=== PATIENT | female | born 2000 | race Caucasian/White ===

== ENCOUNTER 2023-09-28 11:15 | Emergency (ER) | payer SELFPAY ==
[2023-09-28 11:27] VITALS: BP 116/69
--- NOTE | 2023-09-28 11:38 | ED.GENMED ---
History of Present Illness
General
Chief Complaint: Abdominal Symptoms
Source: patient
Time Seen by Provider: 09/28/23 11:36
Travel History
Have you had any contact with someone who has COVID-19?: No
Do you have any symptoms of coronavirus? Fever > 100 degrees, chills, cough, shortness of breath, sore throat, loss of taste or smell, muscle aches, or headache?: Yes
Symptoms:: nausea
History of Present Illness
History of Present Illness:
22-year-old female with past medical history of anxiety, depression, previous substance abuse presenting to the emergency department via EMS for evaluation after she has been experiencing nausea over the last 3 days, no other symptoms associated and
no vomiting. Patient was given a Zofran and route by EMS and upon arrival to the emergency department states that her symptoms are fully resolved and she wishes to be discharged home and does not wish to seek any further care. Patient is denying
any abdominal pain, urinary symptoms, back or flank pain. She states her last menstrual period was about 1 week ago. Notes that prior to this menstrual she had not had a regular menstrual for about 10 months which she is attributing to her
substance abuse. She states she does not believe she is .
Past History
Past History
ED Past Medical History: Psychiatric
ED Past Surgical History: None
Social History
Tobacco: Non-smoker
Alcohol: None
Drug: IVDA and Other (Smokes crack)
Personal: Single
Living: homeless
Review of Systems
Review of Systems
All Other Systems: ROS reviewed and negative except as documented in HPI and ROS
Phy Exam
Physical Exam
Physical Exam:
GENERAL: Alert , in no apparent distress
EYE: conjunctiva clear
Head: Normocephalic atraumatic
NECK: Supple,
ENT: mmm.
LUNGS: no acute respiratory distress
Abdomen: Soft, nontender, nondistended, very thin in appearance
NEUROLOGICAL: Alert and oriented
SKIN: Warm and dry, skin intact.
MUSCULOSKELETAL: well perfused.
PSYCH: Normal and appropriate interaction.
Scores
Heart Failure Risk
Heart Failure Risk Score: Not Applicable
Heart Score for Chest Pain Patients
STEMI patient?: Not applicable
Withdrawal Assessment of Alcohol
Withdrawal Assessment Completed?: Not applicable
Course
Vital Signs
Initial and Last Documented VS:
Initial Vital Signs
Temp Pulse Resp BP Pulse Ox
98.3 F 78 16 116/69 100
09/28/23 11:27 09/28/23 11:09/28/23 11:09/28/23 11:09/28/23 11:27
Last Documented Vital Signs
Temp Pulse Resp BP Pulse Ox
98.3 F 78 16 116/69 100
09/28/23 11:27 09/28/23 11:27 09/28/23 11:09/28/23 11:27 09/28/23 11:27
MDM/Problems Addressed
Differential Diagnosis Includes:
, GERD, gastritis, gastroenteritis, substance abuse and withdrawal
MDM/Problems Addressed:
22-year-old female presented to the ER via EMS for evaluation of nausea that has been ongoing for the last 3 days, notes after getting Zofran and route by EMS she is no longer nauseous and ultimately wishes to be discharged home and does not wish to
have any further care in the emergency department. I did offer patient lab work and urine as well as test however this was declined. Patient was encouraged to present back to the emergency department with any worsening symptoms and is
otherwise stable for discharge home at this time.
*Pulse Oximetry
Patient hypoxic: no
*Critical Care Note
Total Time (30-74mins, 75-104mins- exclusive of procedures): Not Applicable
Data Reviewed
Review of Other/Old Records Reveals: Records
Comment
Comment:
On record review I saw patient back in July 2023, it was noted at that time patient was using daily crack and fentanyl and had been going in and out of various rehabs and signed herself out. Patient was refusing inpatient care again at that
time and patient preferred to try outpatient Suboxone management and outpatient therapy.
ED Attending Note
-
Portions of this chart may have been created with voice recognition software.� Occasional wrong word or��sound alike� substitutions may have occurred due to the inherent limitations of voice recognition software.
Discharge Plan
Departure
Patient Disposition: Home (Routine Discharge)
Date of Disposition: 09/28/23
Time of Disposition: 11:38
Patient with high blood pressure during this ER visit?: No
Discharge Problem:
Nausea
Instructions: Nausea and Vomiting, Adult (DC)
Prescriptions:
No Action
buprenorphine-naloxone [Suboxone] 4-1 mg film
1 film buccal Q24H Qty: 15 0RF
== END 2023-09-28 11:40 | disposition home or self-care (01) ==
LOC: EMR 11:15
PROVIDERS: EMERGENCY PHYSICIAN Emergency Medicine; FAMILY PHYSICIAN Family Medicine
DX: R11.0 Nausea (principal); F41.9 Anxiety disorder, unspecified; F32.A Depression, unspecified
CPT/HCPCS: 99282